=== PATIENT | male | born 1975 | race Caucasian/White ===

== ENCOUNTER 2018-07-21 14:54 | Emergency (ER) | payer OTHER ==
[~2018-07-21] VITALS: Wt 102.0 kg
[2018-07-21] MEDS ORDERED: ASPIRIN 81 MG TAB PO STA (15:13)
[2018-07-21] MEDS ORDERED: ESOM20CA PO (15:44)
[2018-07-21] MEDS ORDERED: MELA10TA PO (15:44)
[2018-07-21] MEDS ORDERED: MAGN400T28 PO (15:47)
[2018-07-21] MEDS ORDERED: SUMA100T3 PO (15:47)
[2018-07-21] MEDS ORDERED: ASPI-817 PO (15:47)
[2018-07-21] MEDS ORDERED: NAPR1TAB PO (15:49)
[2018-07-21 16:33] VITALS: BP 130/89; PULSE 84; RESP 20
--- NOTE | 2018-07-21 19:27 | ERD ---
ER Documentation Chief Complaint Chief Complaint c/o mid chest pain x2 days radiating for left arm. sent here from [facility] HPI 43-year-old male with no significant past medical history presenting with intermittent central chest pain for the past 48 hours intermittently. He states the pain is pressure-like and lasts only a few seconds then goes away. The pain is unprovoked and not worse with exertion. No associated shortness of breath, dizziness, sweating, nausea or vomiting. No associated leg swelling, recent travel, or recent surgeries. No alleviating or exacerbating factors. Denies any symptoms of acid reflux. No abdominal pain. ROS All systems reviewed and are negative except as per history of present illness. Medications Home Meds Reported Medications Naproxen Na-Diphenhydramin HCl (Aleve Pm Caplet) 1 Each Tablet, 1 EACH PO QHS, TAB 07/21/18 Magnesium Oxide* (Magnesium Oxide*) 400 Mg Tablet, 400 MG PO DAILY, TAB 07/21/18 Aspirin* (Aspirin* EC) 81 Mg Tablet.dr, 81 MG PO DAILY, TAB 07/21/18 Sumatriptan Succinate* (Imitrex*) 100 Mg Tablet, 100 MG PO NEEDED PRN for MIGRAINE HEADACHE, TAB May repeat after 2 hours if needed; MAX 200 mg/24 hours 07/21/18 Esomeprazole Mag Trihydrate (Nexium) 20 Mg Capsule.dr, 20 MG PO DAILY, #30 CAP 07/21/18 Melatonin (Melatonin) 10 Mg Tablet, 20 MG PO HS, TAB 07/21/18 Allergies Allergies: Coded Allergies: No Known Allergy (Unverified , 07/21/18) PMhx/Soc Hx Neurological Disorder: Yes (MIGRAINES) Hx Alcohol Use: Yes (FORMER; NOW OCCASIONAL) Hx Substance Use: Yes (MARIJUANA) Hx Tobacco Use: Yes Smoking Status: Former smoker FmHx Family History: coronary disease (Father and grandfather); No diabetes Physical Exam Vitals Vital Signs Date Temp Pulse Resp B/P (MAP) Pulse Ox O2 O2 Flow FiO2 Time Delivery Rate 07/21/18 84 20 130/89 99 Room Air 16:33 (103) 07/21/18 98.2 98 20 151/93 97 15:00 (112) Physical Exam Const: No acute distress Head: Atraumatic Eyes: Normal Conjunctiva ENT: Normal External Ears, Nose and Mouth. Neck: Full range of motion. No meningismus. Resp: Clear to auscultation bilaterally Cardio: Regular rate and rhythm, no murmurs. 2+ distal pulses in all 4 extremities Abd: Soft, non tender, non distended. Normal bowel sounds Skin: No petechiae or rashes Back: No midline or flank tenderness Ext: No cyanosis, or edema Neur: Awake and alert Psych: Normal Mood and Affect Result Diagram: 07/21/18 1530 07/21/18 1530 Results 24 hrs Laboratory Tests Test 07/21/18 15:30 White Blood Count 7.4 10^3/ul Red Blood Count 5.17 10^6/ul Hemoglobin 14.4 g/dl Hematocrit 43.1 % Mean Corpuscular Volume 83.4 fl Mean Corpuscular Hemoglobin 27.9 pg Mean Corpuscular Hemoglobin Concent 33.4 g/dl Red Cell Distribution Width 13.3 % Platelet Count 237 10^3/UL Mean Platelet Volume 9.1 fl Immature Granulocytes % 0.100 % Neutrophils % 59.0 % Lymphocytes % 29.4 % Monocytes % 9.1 % Eosinophils % 1.6 % Basophils % 0.8 % Nucleated Red Blood Cells % 0.0 /100WBC Immature Granulocytes # 0.010 10^3/ul Neutrophils # 4.3 10^3/ul Lymphocytes # 2.2 10^3/ul Monocytes # 0.7 10^3/ul Eosinophils # 0.1 10^3/ul Basophils # 0.1 10^3/ul Nucleated Red Blood Cells # 0.0 10^3/ul Sodium Level 141 mmol/L Potassium Level 4.2 mmol/L Chloride Level 106 mmol/L Carbon Dioxide Level 27 mmol/L Anion Gap 8 Blood Urea Nitrogen 15 mg/dl Creatinine 1.03 mg/dl Est Glomerular Filtrat Rate mL/min > 60 mL/min Glucose Level 92 mg/dl Calcium Level 9.6 mg/dl Creatine Kinase 101 IU/L Creatine Kinase Index 0.8 Creatinine Kinase MB (Mass) 0.78 ng/ml Troponin I < 0.012 ng/ml Current Medications Medications Dose Sig/Leelee Start Time Status Last (Trade) Ordered Route PRN Stop Time Admin Dose Reason Admin Aspirin 162 mg ONCE STAT 07/21/18 DC 07/21/18 (Aspirin) PO 15:13 07/21/18 15:29 15:14 Procedures/MDM EMERGENT LABS AND DIAGNOSTIC STUDIES: Lab Results above were reviewed and interpreted by me. CBC: no anemia or evidence of infection BMP: No evidence of electrolyte abnormality, renal failure, hypoglycemia Troponin within normal limits, not indicative of cardiac ischemia 12-lead EKG was interpreted by Andrés Vargas MD: Normal Sinus Rhythm Normal axis Normal intervals No arrhythmia, no acute ST or T wave changes suggestive of acute ischemia or STEMI. Radiology Results as interpreted by Radiology below were reviewed by Golden Vargas MD: Chest x-ray shows no acute abnormality Initial Nursing notes reviewed. Previous Medical Records requested via the Electronic Health Record. EMERGENCY DEPARTMENT COURSE / MEDICAL DECISION MAKING: The patient presents with chest pain. Vitals are stable. I considered pulmonary embolism, aortic dissection, pneumothorax among other diagnoses. Evaluation for acute coronary syndrome was performed. The HEART score was utilized for risk stratification and found to be 1. Repeat EKG and troponin not indicated as the patient has had symptoms for 2 days. Based on this evaluation the patient's risk of major adverse cardiac events is <1%. Shared decision making occurred with patient and the decision has been made to discharge the patient for outpatient evaluation and functional study within 72 hours. Doubt PE or dissection. Patient instructed to arrange follow up with PCP in the next 2 days and return to the ED for any new or worsening symptoms. Patient's blood pressure was elevated (>120/80) but appears stable without evidence of hypertensive emergency or urgency. The patient was counseled about the risks of hypertension and urged to pursue outpatient monitoring and therapy within a week with their primary care physician. Departure Diagnosis: Primary Impression: Chest pain Chest pain type: unspecified Qualified Codes: R07.9 - Chest pain, unspecified Condition: Stable Patient Instructions: Chest Pain, Uncertain Cause Referrals: DOCTOR,NOT ON STAFF (PCP) Additional Instructions: Return to the ER for any worsening symptoms. Follow-up with your doctor for a complete physical exam as soon as possible to check your cholesterol and other appropriate tests. SAVI VARGAS MD Jul 21, 2018 19:27
== END 2018-07-21 16:34 | disposition home or self-care (01) ==
LOC: E/R 14:54
DX: R07.9 Chest pain, unspecified (principal); Z79.82 Long term (current) use of aspirin; Z87.891 Personal history of nicotine dependence
CPT/HCPCS: 36415; 71045; 80048; 82550; 82553; 84484; 85025; 93005